=== PATIENT | female | born 2000 | race Caucasian/White ===

== ENCOUNTER → 2020-08-12 | Outpatient (CLI) | payer BC | LOC: COL.RAD 07:01 | DX: R74.8 Abnormal levels of other serum enzymes (principal) ==

== ENCOUNTER 2021-07-02 21:07 | Emergency (ER) | payer BC ==
[~2021-07-02] VITALS: Ht 167.6 cm; Wt 131.8 kg
[2021-07-03 01:13] VITALS: BP 122/68; PULSE 95; TEMP 99
[2021-07-06] MEDS ORDERED: LEVAQUIN 750MG750 M1 PO (18:40)
[2021-07-06] MEDS ORDERED: PHENERGAN W/CO120 M1 PO (19:13)
== END 2021-07-03 01:13 | disposition home or self-care (01) ==
LOC: COL.ER 21:07
DX: R50.9 Fever, unspecified (principal); Z20.822 Contact with and (suspected) exposure to COVID-19

== ENCOUNTER → 2021-12-09 | Outpatient (CLI) | payer BC ==
[~2021-12-09] MED LIST: LEVAQUIN 750MG750 M1 PO; PHENERGAN W/CO120 M1 PO
[2021-12-09 14:50] LABS: BASO % 0.3 % (0.0-2.0); EOS # 0.1 K/mm3 (0.0-0.7); EOS % 1.7 % (0.0-4.0); GRAN # 3.9 K/mm3 (1.4-6.5); GRAN % 59.2 % (42.2-75.2); HEMATOCRIT 42.5 % (37.0-47.0); HEMOGLOBIN 14.3 g/dl (12.5-16.0); LYMPH # 2.2 K/mm3 (1.2-3.4); LYMPH % 32.4 % (20.0-51.0); MEAN CELL VOLUME 81 fl (80.0-100.0); MEAN CORPUSCULAR HEMOGLOBIN 27 pg (27-31); MEAN CORPUSCULAR HGB CONC 34 g/dl (33.0-37.0); MEAN PLATELET VOLUME 9.2 fl (7.4-10.4); MONO # 0.4 K/mm3 (0.1-0.6); MONO % 6.2 % (1.7-9.3); PLATELET COUNT 292 K/mm3 (130-400); RED BLOOD COUNT 5.23 M/mm3 (4.10-5.30); REDCELL DISTRIBUTION WIDTH-CV 13.2 % (11.5-14.5)
[2021-12-09 15:03] LABS: BILIRUBIN,TOTAL 0.3 mg/dL (0.2-1.2); CALCIUM 9.3 mg/dL (8.4-10.2); CREATININE, serum 0.68 mg/dL (0.57-1.11); POTASSIUM 4.1 mmol/L (3.5-4.5); TOTAL PROTEIN 7.9 gm/dL (6.2-8.1)
== END ==
LOC: COL.LAB 14:29
PROVIDERS: Family Medicine
DX: R10.13 Epigastric pain (principal)